=== PATIENT | female | born 1990 | race Caucasian/White ===

== ENCOUNTER 2021-06-27 11:08 | Outpatient (CLI) | payer OTHER ==
[2021-06-27 15:57] LABS: BILIRUBIN,URINE NEGATIVE (NEGATIVE); GLUCOSE, URINE (UA) NEGATIVE (NEGATIVE); KETONES,URINE (UA) NEGATIVE (NEGATIVE); LEUKOCYTE ESTERASE, URINE NEGATIVE (NEGATIVE); NITRITE,URINE NEGATIVE (NEGATIVE); OCCULT BLOOD,URINE NEGATIVE (NEGATIVE); PH,URINE 6.5 PH (5.0-7.5); PROTEIN,URINE NEGATIVE (NEGATIVE); UROBILINOGEN,URINE 0.2 (NORMAL) E.U./dL (NORMAL)
[2021-06-27 16:12] LABS: CLARITY,URINE CLEAR (CLEAR)
== END 2021-06-27 23:59 | disposition home or self-care (01) ==
LOC: LAB.R 11:08
PROVIDERS: ATTEND Internal Medicine
DX: R30.0 Dysuria (principal)
CPT/HCPCS: 81001; 81003; 87086

== ENCOUNTER 2021-09-19 10:14 | Outpatient (CLI) | payer OTHER ==
--- NOTE | 2021-09-19 12:23 | Ultrasound Report ---
PROCEDURE: Pelvic w/Transvaginal INDICATIONS: MENORRHAGIA TECHNIQUE: Real-time scanning was performed of the pelvic organs, with image documentation. Additional endovagi nal scanning was necessary due to incomplete visualization of the adnexal and endometrial structures by transabdominal scanning. COMPARISON: None. FINDINGS: No pathologic free abdominal or pelvic fluid. Uterus: Uterus is normal in size at 8.6 x 5.3 x 7.2 Myometrium is slightly heterogenous. The endomet rium is heterogenous and measures 26.4 mm in combined thickness. Ovaries: Right and left ovaries measure 3.8 x 2.0 x 1.9 cm and 4.1 x 2.8 x 2.1 cm respectively. Ther e is an echogenic cyst in left ovary measuring 1.6 x 1.5 x 1.6 cm. Minimal left adnexal free fluid pr esent. IMPRESSION: 1. Thickened heterogenous endometrium. Consider follow-up exam during the proliferative phase in the first 2 weeks of the menstrual cycle. Endometrium retains thickness, consider follow-up saline infusi on sonogram to evaluate for polyps and/or endometrial biopsy 2. Left ovarian hemorrhagic cyst, 1.6 cm Reviewed by: Murali Choe MD on 09/19/2021 11:22 AM [facility] Approved by: Murali Choe MD on 09/19/2021 11:22 AM [facility] Station ID: [id number]
== END 2021-09-19 10:15 | disposition home or self-care (01) ==
LOC: DI 10:14
PROVIDERS: ATTEND Internal Medicine
DX: N92.0 Excessive and frequent menstruation with regular cycle (principal); R93.89 Abnormal findings on diagnostic imaging of other specified body structures; N83.202 Unspecified ovarian cyst, left side

== ENCOUNTER 2022-06-28 08:00 | Outpatient (CLI) | payer OTHER ==
[2022-06-28 16:38] LABS: THYROID STIMULATING HORMONE 0.66 uIU/mL (0.34-5.60)
[2022-06-28 16:39] LABS: FREE T3 3.28 pg/mL (2.5-3.9)
[2022-06-28 16:40] LABS: FREE T4 (FREE THYROXINE) 0.96 ng/dL (0.58-1.64)
== END 2022-06-28 23:59 | disposition home or self-care (01) ==
LOC: LAB.R 08:00
PROVIDERS: ATTEND Internal Medicine
DX: Z80.8 Family history of malignant neoplasm of other organs or systems (principal); Z83.49 Family history of other endocrine, nutritional and metabolic diseases
CPT/HCPCS: 84439; 84443; 84481

== ENCOUNTER 2022-07-23 08:00 | Outpatient (CLI) | payer OTHER ==
[2022-07-23 16:54] LABS: BASOPHILS # (AUTO) 0.1 10^3/uL (0.0-0.1); BASOPHILS % (AUTO) 1.2 %; EOSINOPHILS # (AUTO) 0.1 10^3/uL (0.0-0.7); EOSINOPHILS % (AUTO) 1.2 %; HCT - HEMATOCRIT 40.9 % (37.0-47.0); HGB - HEMOGLOBIN 13.6 g/dL (12.0-16.0); LYMPHOCYTES # (AUTO) 1.6 10^3/uL (1.5-3.5); MEAN CORPUSCULAR HEMOGLOBIN 29.8 pg (27.0-31.0); MEAN CORPUSCULAR HGB CONC 33.3 g/dL (32.0-36.0); MEAN CORPUSCULAR VOLUME 89.5 fL (81.0-99.0); MEAN PLATELET VOLUME 10.5 fL (7.9-10.8); MONOCYTES # (AUTO) 0.3 10^3/uL (0.0-1.0); MONOCYTES % (AUTO) 5.8 %; NEUTROPHILS # (AUTO) 3.2 10^3/uL (1.5-6.6); NEUTROPHILS % (AUTO) 61.6 %; PLT - PLATELET COUNT 208 10^3/uL (130-450); RED BLOOD COUNT 4.57 10^6/uL (4.20-5.40); RED CELL DISTRIBUTION WIDTH 12.7 % (12.0-15.0); WHITE BLOOD COUNT 5.2 x10^3/uL (4.8-10.8)
[2022-07-23 17:04] LABS: ALBUMIN 3.6 g/dL (3.2-5.5); ALBUMIN/GLOBULIN RATIO 1.3 (1.0-2.2); BILIRUBIN,TOTAL 0.8 mg/dL (0.2-1.0); CALCIUM 8.9 mg/dL (8.5-10.3); CREATININE 0.7 mg/dL (0.4-1.0); POTASSIUM 3.7 mmol/L (3.5-5.0); TOTAL PROTEIN 6.4 g/dL (6.7-8.2)
[2022-07-23 17:28] LABS: THYROID STIMULATING HORMONE 0.74 uIU/mL (0.34-5.60)
[2022-07-23 17:30] LABS: FREE T3 2.97 pg/mL (2.5-3.9); FREE T4 (FREE THYROXINE) 0.84 ng/dL (0.58-1.64)
[2022-07-24 07:10] LABS: PROGESTERONE 17.4 ng/mL (.)
[2022-07-24 20:07] LABS: THYROGLOBULIN ANTIBODY <1.0 IU/mL (0.0-0.9); THYROID PEROXIDASE (TPO) AB <9 IU/mL (0-34)
[2022-07-25 13:10] LABS: ESTRONE 66 pg/mL (27-231)
[2022-07-25 21:07] LABS: DHEA SERUM 180 ng/dL (31-701)
== END 2022-07-23 23:59 | disposition home or self-care (01) ==
LOC: LAB.R 08:00
PROVIDERS: ATTEND Internal Medicine
DX: E34.9 Endocrine disorder, unspecified (principal); R53.83 Other fatigue
CPT/HCPCS: 80053; 82626; 82679; 84144; 84403; 84439; 84443; 84481; 84482; 85025; 86376; 86800

== ENCOUNTER 2023-01-17 13:56 | Outpatient (CLI) | payer OTHER ==
--- NOTE | 2023-01-17 14:46 | XRAY Report ---
PROCEDURE: Wrist 3 View LT INDICATIONS: PAIN IN LEFT WRIST TECHNIQUE: 3 views of the wrist were acquired. COMPARISON: None. FINDINGS: Bones: No fractures or dislocations. No suspicious bony lesions. Mild osteophytic changes at the tr iscaphe joint and first carpometacarpal joint. Soft tissues: No suspicious soft tissue calcifications or masses. IMPRESSION: Mild osteoarthritis. Reviewed by: Sandro Franklin MD on 01/17/2023 2:45 PM PDT Approved by: Sandro Franklin MD on 01/17/2023 2:45 PM PDT Station ID: [id number]
== END 2023-01-17 13:57 | disposition home or self-care (01) ==
LOC: DI 13:56
PROVIDERS: ATTEND Internal Medicine
DX: M19.032 Primary osteoarthritis, left wrist (principal)